=== PATIENT | female | born 1985 | race American Indian/Alaskan Native ===

== ENCOUNTER 2017-12-02 19:21 | Emergency (ER) | payer BC, MEDICAID, OTHER ==
[2017-12-02 19:39] VITALS: BP 129/76
[2017-12-02] MEDS ORDERED: Silver Sulfadiazine 1% Crm 50 GM Tube TOP ONE (19:54)
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
[2017-12-02] MEDS ORDERED: Acetaminophen/HYDROcodone 325-10 MG Tab ONE (19:59)
== END 2017-12-02 20:07 | disposition home or self-care (01) ==
LOC: DL.ED 19:21
DX: T23.252A Burn of second degree of left palm, initial encounter (principal); E78.00 Pure hypercholesterolemia, unspecified; X12.XXXA Contact with other hot fluids, initial encounter
CPT/HCPCS: 99283

== ENCOUNTER 2024-02-16 09:27 | Emergency (ER) | payer BC, OTHER ==
[2024-02-16 10:07] VITALS: BP 130/82; PULSE 97
== END 2024-02-16 10:51 | disposition home or self-care (01) ==
LOC: DL.ED 09:27
DX: S80.01XA Contusion of right knee, initial encounter (principal); G89.18 Other acute postprocedural pain; I10 Essential (primary) hypertension; E78.00 Pure hypercholesterolemia, unspecified; Z79.51 Long term (current) use of inhaled steroids; Z88.5 Allergy status to narcotic agent; Z88.8 Allergy status to other drugs, medicaments and biological substances; W19.XXXA Unspecified fall, initial encounter
CPT/HCPCS: 93971; 99283